=== PATIENT | male | born 1970 | race Caucasian/White ===

== ENCOUNTER → 2019-09-24 09:45 | Outpatient (CLI) | payer MEDICAID, SELFPAY | PROVIDERS: PCP Family Medicine; Referring Provider Otolaryngology; Visit Provider Otolaryngology | DX: Z11.59 Encounter for screening for other viral diseases (principal) | CPT/HCPCS: 87635; 94799; U0003 ==

== ENCOUNTER → 2019-09-28 15:16 | Outpatient (CLI) | payer MEDICAID, SELFPAY ==
--- NOTE | 2019-09-28 09:45 | SEP_PTH ---
PATIENT: [place] [facility] U[id number] AGE/SX: 54/M ROOM: RE09/28/[address]: Dr. Juaquin Cardozo MD : [id number] BED: DIS: SPEC #: [id number] RECD: 09/28/19 14:50 STATUS: RICARDO SHANNAN #: [id number] ROBBY: 09/28/19 09:[address]: Juaquin Cardozo DEPT: SURGICAL PATHOLOGY RECD BY: Yamil Hadley ENTERED: 09/29/19 08:33 SP TYPE: SEPTUM OTHR DR: Dr. Mazin Oteor, [facility] Tissues: Nasal septum, NOS Procedures: Decalcification bone/plaque Surgery Specimen Level III HEADER OPERATION: Septoplasty, submucous resection of inferior turbinates PRE-OP DIAGNOSIS: Deviated nasal septum; hypertrophy of nasal turbinates; nasal congestion TISSUE SUBMITTED: Septum MICROSCOPIC DIAGNOSIS Septum: Fragments of bone and cartilage, clinically deviated nasal septum. SJ:hannah 10/04/19 MICROSCOPIC DESCRIPTION Slides are reviewed. GROSS DESCRIPTION Received is one container labeled with the patient's name and not further designated. The specimen consists of multiple fragments of cartilage and bone that in aggregate measure 4 x 3 x 0.6 cm. Rodding Anode Worker sections are submitted in one cassette after decalcification. / HUMPHREY:hannah 09/29/19 TC:5 CPT: 65874, 33311
== END ==
PROVIDERS: PCP Family Medicine; Referring Provider Otolaryngology; Visit Provider Otolaryngology
DX: J34.2 Deviated nasal septum (principal); R09.81 Nasal congestion; J34.3 Hypertrophy of nasal turbinates
CPT/HCPCS: 88304; 88311